=== PATIENT | male | born 1995 | race Caucasian/White ===

== ENCOUNTER 2024-11-05 18:13 | Emergency (ER) | payer OTHER ==
[~2024-11-05] VITALS: Ht 182.9 cm; Wt 86.4 kg
[2024-11-05 18:19] VITALS: BP 130/88; PULSE 100; RESP 18; TEMP 102.2; O2SAT 98
[2024-11-05] MEDS: IBUPROFEN 600 MG TABLET PO ONE (18:35)
[2024-11-05] MEDS: ACETAMINOPHEN 500 MG TABLET PO ONE (18:35)
[2024-11-05 18:36] LABS: COVID AG,FIA SOURCE NASAL SWAB
[2024-11-05] MEDS: AMOX TR/POT CLAV 875 MG/125 MG TABLET PO ONE (19:02)
[2024-11-05] MEDS: DEXAMETHASONE SOD PHOS 4 MG/ML VIAL IM ONE (19:03)
[2024-11-05 19:06] LABS: INFLUENZA TYPE A NEGATIVE FOR TYPE A (NEGATIVE); INFLUENZA TYPE B NEGATIVE FOR TYPE B (NEGATIVE); SARS-COV2 (COVID) ANTIGEN,FIA Negative (Negative)
[2024-11-05 19:53] LABS: RAPID GROUP A STREP POSITIVE (NEGATIVE)
[2024-11-05] MEDS ORDERED: IBUP-1492 PO (20:07)
[2024-11-05] MEDS ORDERED: AMOX-457 PO (20:07)
[2024-11-05] MEDS ORDERED: ACET-3385 PO (20:07)
== END 2024-11-05 20:37 | disposition home or self-care (01) ==
LOC: EMS 18:13
DX: R52 Pain, unspecified (principal); J03.90 Acute tonsillitis, unspecified; J02.0 Streptococcal pharyngitis; F12.90 Cannabis use, unspecified, uncomplicated; Z91.030 Bee allergy status; Z98.890 Other specified postprocedural states; Z20.822 Contact with and (suspected) exposure to COVID-19
CPT/HCPCS: 99284; 87426; 87430; 87804; 96372; J1100

== ENCOUNTER 2024-11-26 12:08 | Emergency (ER) | payer OTHER ==
[~2024-11-26] VITALS: Ht 182.9 cm; Wt 81.8 kg
[~2024-11-26 12:08] MED LIST: ACET-3385 PO; AMOX-457 PO; IBUP-1492 PO
[2024-11-26 12:24] VITALS: TEMP 98.1
[2024-11-26] MEDS ORDERED: IBUP-1492 PO (13:49)
[2024-11-26] MEDS ORDERED: ACET-3385 PO (13:49)
[2024-11-26] MEDS: DEXAMETHASONE 4 MG TABLET PO ONE (14:00)
[2024-11-26] MEDS: ACETAMINOPHEN 500 MG TABLET PO ONE (14:01)
[2024-11-26] MEDS: IBUPROFEN 400 MG TABLET PO ONE (14:01)
[2024-11-26 14:05] VITALS: BP 124/76; PULSE 72; RESP 18; O2SAT 100
== END 2024-11-26 14:12 | disposition home or self-care (01) ==
LOC: EMS 12:09
DX: J02.8 Acute pharyngitis due to other specified organisms (principal); F12.90 Cannabis use, unspecified, uncomplicated; G43.909 Migraine, unspecified, not intractable, without status migrainosus; B97.89 Other viral agents as the cause of diseases classified elsewhere; Z91.030 Bee allergy status; Z98.890 Other specified postprocedural states
CPT/HCPCS: 99284; 87430; J8540; Z7502; Z7610

== ENCOUNTER 2025-05-01 14:37 | Emergency (ER) | payer OTHER ==
[~2025-05-01] VITALS: Ht 182.9 cm; Wt 75.0 kg
[2025-05-01 14:39] VITALS: BP 124/72; PULSE 61; RESP 16; TEMP 97.7; O2SAT 98
[2025-05-01] MEDS: LIDOCAINE 1% 10 ML VIAL SQ ONE (17:11)
[2025-05-01] MEDS ORDERED: CLIN-142 PO (17:35)
[2025-05-01] MEDS: ACETAMINOPHEN 325 MG TABLET PO ONE (17:45)
== END 2025-05-01 18:00 | disposition home or self-care (01) ==
LOC: EMS 14:49
DX: L02.412 Cutaneous abscess of left axilla (principal); F12.90 Cannabis use, unspecified, uncomplicated; Z98.890 Other specified postprocedural states; Z91.030 Bee allergy status; Z79.899 Other long term (current) drug therapy
CPT/HCPCS: 99283; 10060; J3490

== ENCOUNTER 2025-07-22 15:09 | Emergency (ER) | payer OTHER ==
[~2025-07-22] VITALS: Ht 182.9 cm; Wt 79.5 kg
[~2025-07-22 15:09] MED LIST changes: +CLIN-142 PO
[2025-07-22 15:10] VITALS: BP 117/69; PULSE 52; RESP 16; TEMP 98.4; O2SAT 98
== END 2025-07-22 17:09 | disposition home or self-care (01) ==
LOC: EMS 15:09
DX: S93.402A Sprain of unspecified ligament of left ankle, initial encounter (principal); F12.90 Cannabis use, unspecified, uncomplicated; Z91.030 Bee allergy status; Z98.890 Other specified postprocedural states; X58.XXXA Exposure to other specified factors, initial encounter; Y93.66 Activity, soccer; Y92.89 Other specified places as the place of occurrence of the external cause; Y99.8 Other external cause status
CPT/HCPCS: 99283